=== PATIENT | female | born 1975 | race Caucasian/White ===

== ENCOUNTER 2020-05-16 21:31 | Emergency (ER) | payer OTHER, SELFPAY ==
[2020-05-16] VITALS (10 sets, daily range): BP systolic 111–152; BP diastolic 82–93; PULSE 78–92; RESP 12–20; O2SAT 94–100
--- NOTE | ~2020-05-16 | XR_ITS ---
EXAMINATION: XR chest 1V portable EXAM DATE: 05/16/2020 22:01 INDICATION: Generalized chest pain and shortness of breath. Right-sided jaw pain. TECHNIQUE: Portable AP frontal chest x-ray was obtained. There are no prior studies for comparison. FINDINGS: The lungs are clear. There are no pleural effusions. The cardiomediastinal silhouette is within normal limits. There is no pneumothorax suspected. The bones and soft tissues are unremarkab le. IMPRESSION: No acute cardiopulmonary findings. Reviewed, dictated and finalized at location A.
--- NOTE | 2020-05-16 21:42 | ECG_ITS ---
Measurements Intervals [place] Rate: 94 P: 54 CO: 139 QRS: 33 QRSD: 97 T: 48 QT: 355 QTc: 444 Interpretive Statements SINUS RHYTHM BORDERLINE ST ABNORMALITY- LATERAL LEADS BORDERLINE ECG Electronically Signed On 05-17-2020 6:41:47 CDT by Alek Granados D.O.
[2020-05-16 21:55] LABS: Basophils Percent Auto 0.4 % (0.2-1.2); Eosinophils Absolute Auto 0.2 K/mm3 (0-0.3); Eosinophils Percent Auto 1.9 % (0-4.4); Hematocrit 39.9 % (37.0-47.0); Hemoglobin 13.8 g/dL (12.0-15.0); Immature Granulocyte Absolute 0.02 K/mm3 (0.00-0.031); Immature Granulocyte Percent A 0.3 % (0-0.5); Lymphocytes Absolute Auto 2.37 K/mm3 (0.9-3.2); Lymphocytes Percent Auto 30.2 % (18.3-44.2); Mean Corpuscular HGB Conc 34.6 g/dl (32-36); Mean Corpuscular Volume 95.5 fl (80-100); Mean Platelet Volume 9.4 fl (7.4-10.4); Monocytes Absolute Auto 0.6 K/mm3 (0.1-0.6); Neutrophils Absolute Auto 4.7 K/mm3 (1.3-6.7); Neutrophils Percent Auto 59.2 % (45.5-73.1); Platelet Count Result 249 k/mm3 (150-375); Red Blood Count 4.18 M/mm3 (4.2-5.4); Red Cell Distribution Width 11.6 % (11.5-14.5); White Blood Count 7.9 K/mm3 (4.5-10.0)
[2020-05-16 22:04] LABS: INR 1.1; Prothrombin Time 13.5 Seconds (11.1-14.7)
[2020-05-16 22:07] LABS: Anion Gap 10 mmol/L (8-16); Blood Urea Nitrogen 7 mg/dL (7-17); Calcium 9.8 mg/dL (8.4-10.2); Carbon Dioxide 29 mmol/L (22-30); Chloride 104 mmol/L (98-107); Estimated Glomerular Filt Rate > 60; Glucose 110 mg/dL (65-105); Potassium 3.5 mmol/L (3.4-5.0); Sodium 143 mmol/L (137-145)
[2020-05-16 22:08] LABS: Ethanol < 10 mg/dL (<10)
[2020-05-16 22:11] LABS: D Dimer 0.27 ug/mL (<0.48)
[2020-05-16 22:19] LABS: Troponin I < 0.012 ng/mL (0.000-0.034)
--- NOTE | 2020-05-16 22:23 | ED.CHESTPAIN ---
HPI - Chest Pain General Chief Complaint: Chest Pain Stated Complaint: really bad chest pain Time Seen by Provider: 05/16/20 21:35 Source: patient and family Mode of arrival: ambulatory Limitations: no limitations History of Present Illness HPI narrative: 45-year-old with no major medical problems here with complaints of jaw tightness, chest tightness, arm stiffness started few hours ago. Patient states that she went to a [place] and on her way back home started to have the symptoms. She also feels bloated. She denies any nausea or vomiting. MD complaint: chest heaviness Onset (ago): hour(s) (1) Timing of current episode: constant Pain location: substernal and parasternal Pain radiation: none Severity: moderate Quality: tightness Relieving factors: nothing Risk Factors Coronary artery disease risk factors: none Thoracic aortic dissection risk factors: none Related Data Allergies Allergy/AdvReac Type Severity Reaction Status Date / Time No Known Allergies Allergy Verified 05/16/20 21:40 Review of Systems Review of Systems: All systems reviewed & are unremarkable except as noted in HPI and below Constitutional: Constitutional: Reports no additional constitutional complaints Eyes: Eyes: Reports no additional eye complaints ENT: Reports system reviewed and no additional complaints, except as documented Cardiovascular: Cardiovascular: Reports no additional cardiovascular complaints Respiratory: Respiratory: Reports no additional respiratory complaints Gastrointestinal: Gastrointestinal: Reports as per HPI Musculoskeletal: Musculoskeletal: Reports no additional musculoskeletal complaints Integumentary/Breasts: Skin/Breast: Reports system reviewed and no additional complaints, except as docu Exam Narrative: Exam Narrative: GENERAL: Well-appearing, well-nourished, and in no acute distress.,very anxious HEAD: Normocephalic, atraumatic. EYES: PERRLA and EOMI. ENT: Nares clear, no rhinorrhea or epistaxis. Mucous membranes moist. NECK: Supple. CHEST: Clear to auscultation. No respiratory distress. HEART: Regular rate and rhythm. No murmur heard. Normal peripheral pulses. ABDOMEN: Soft, nontender, nondistended, normal active bowel sounds. EXTREMITIES: Normal range of motion. No edema. SKIN: Warm, dry, no rash. NEURO: No focal deficits. Alert and oriented x3.. Course Vital Signs Vital signs: Vital Signs Pulse Rate 92 05/16/20 21:36 Respiratory Rate 16 05/16/20 21:36 Blood Pressure 152/93 H 05/16/20 21:36 Pulse Oximetry 100 05/16/20 21:36 Pulse Rate 80 05/16/20 21:42 Respiratory Rate 17 05/16/20 21:42 Blood Pressure 125/93 H 05/16/20 21:42 Pulse Oximetry 94 05/16/20 21:42 MDM - Chest Pain MDM Narrative Medical decision making narrative: With a history of chest pain will do a cardiac work-up including d-dimer. Patient appears to be very anxious at this time her blood pressure was elevated, will give her IV 0.5 mg of Ativan to the cardiac work-up. Differential Diagnosis Differential diagnosis: Likely pneumothorax, unstable angina pectoris, atypical chest pain and other (Anxiety) Medical Records Data Attestation: I reviewed the patient's medical records. Lab Data Attestation: I reviewed the patient's lab results. Result diagrams: 05/16/20 21:47 05/16/20 21:47 Labs: Lab Results 05/16/20 05/16/20 05/16/20 Range/Units 21:47 21:47 21:47 WBC 7.9 (4.5-10.0) K/mm3 RBC 4.18 L (4.2-5.4) M/mm3 Hgb 13.8 (12.0-15.0) g/dL Hct 39.9 (37.0-47.0) % MCV 95.5 (80-100) fl MCH 33.0 (26-34) pg MCHC 34.6 (32-36) g/dl RDW 11.6 (11.5-14.5) % Plt Count 249 (150-375) k/mm3 MPV 9.4 (7.4-10.4) fl Immature Gran % (Auto) 0.3 (0-0.5) % Neut % (Auto) 59.2 (45.5-73.1) % Lymph % (Auto) 30.2 (18.3-44.2) % Stanton % (Auto) 8.0 (2.6-8.5) % Eos % (Auto) 1.9 (0-4.4) % Baso % (Auto) 0.4 (0.2-1.2) %
[2020-05-16] MEDS: LORazepam INJ (*CRX) 2 MG/ML VIAL 0.5 MG IV PUSH (22:45)
== END 2020-05-16 23:21 | disposition home or self-care (01) ==
PROVIDERS: Emergency Provider Family Medicine
DX: R07.89 Other chest pain (principal); F41.0 Panic disorder [episodic paroxysmal anxiety]; R94.31 Abnormal electrocardiogram [ECG] [EKG]
CPT/HCPCS: 36415; 71045; 80048; 80307; 84484; 85025; 85380; 85610; 93005; 96374; 99284; J2060

== ENCOUNTER 2020-08-05 13:07 | Outpatient (CLI) | payer BC, SELFPAY ==
--- NOTE | ~2020-08-05 | MR_ITS ---
EXAMINATION: MR cervical spine wo con EXAM DATE: 08/05/2020 13:48 INDICATION: Cervical radiculopathy, spondylosis radiculopathy . Left-sided neck pain, left shoulder p ain. TECHNIQUE: Multi-sequential, multiplanar MR images of the cervical spine were obtained without contra st. Axial T2, axial T2 MERGE sequence. Sagittal T1, T2, T2 fat saturation images also obtained. Th ere is no prior study for comparison. FINDINGS: There is mild to moderate disc disease C5-C7. The vertebral bodies are aligned in the AP d imension. The spinal cord signal intensity and intrinsic morphology is normal. Cervicomedullary junct ion is normal in appearance. There are no suspicious marrow signal abnormalities. Paraspinal soft tis emmett is unremarkable. Level by level evaluation: C2-C3: Disc does not extend beyond the endplate margin. Uncovertebral joint arthropathy: None. Facet joint arthropathy: Mild. Neural foraminal stenosis: No stenosis. Central canal stenosis: No stenosis. C3-C4: Disc does not extend beyond the endplate margin. Uncovertebral joint arthropathy: Mild bilateral. Facet joint arthropathy: Mild bilateral. Neural foraminal stenosis: No stenosis. Central canal stenosis: No stenosis. C4-C5: Disc does not extend beyond the endplate margin. Uncovertebral joint arthropathy: Mild bilateral. Facet joint arthropathy: Mild to moderate right, mild left. Neural foraminal stenosis: Mild bilateral. Central canal stenosis: No stenosis. C5-C6: There is a mild diffuse disc bulge, extending into the left neural foramina. Uncovertebral joint arthropathy: Mild to moderate bilateral. Facet joint arthropathy: Mild. Neural foraminal stenosis: Moderate to severe left, mild to moderate right. Central canal stenosis: Mild. C6-C7: There is a mild diffuse disc bulge. Uncovertebral joint arthropathy: Mild to moderate bilateral. Facet joint arthropathy: None. Neural foraminal stenosis: No stenosis. Central canal stenosis: No stenosis. C7-T1: Disc does not extend beyond the endplate margin. Uncovertebral joint arthropathy: None. Facet joint arthropathy: None. Neural foraminal stenosis: No stenosis. Central canal stenosis: No stenosis. IMPRESSION: 1. C5-6 disc bulge extending into left neural foramina at causing moderate to severe neural foramina l stenosis. 2. Otherwise mild to moderate cervical spondylosis. Reviewed, dictated and finalized at location A. [employer] IMPRESSION: 1. C5-6 disc bulge extending into left neural foramina at causing moderate to severe neural foraminal stenosis. 2. Otherwise mild to moderate cervical spondylosis.
== END 2020-08-05 13:08 ==
DX: M47.813 Spondylosis without myelopathy or radiculopathy, cervicothoracic region (principal); M50.222 Other cervical disc displacement at C5-C6 level; M47.22 Other spondylosis with radiculopathy, cervical region
CPT/HCPCS: 72141

== ENCOUNTER 2021-07-19 13:15 | Emergency (ER) | payer BC, SELFPAY ==
[2021-07-19 13:22] VITALS: BP 131/89; PULSE 83; RESP 16; TEMP 36.9; O2SAT 100
--- NOTE | 2021-07-19 13:26 | ED.URI ---
HPI - URI/Sore Throat General Chief Complaint: Upper Respiratory Infection Stated Complaint: Sore Throat Time Seen by Provider: 07/19/21 13:26 Source: patient and RN notes reviewed History of Present Illness HPI Narrative: Patient is a 46-year-old female who presents the urgent care with complaints of a sore throat without fever, chills, nausea or vomiting. Patient denies of any recent exposures to Covid/influenza/strep. Patient states her sore throat started on Sunday and has worsened. Patient also reports of a mild cough with chest congestion. Patient has been taking Mucinex without much relief. No other acute complaints. No acute distress noted. Patient aware of the plan of care. Some parts of this dictation were generated by voice recognition software and may contain typographical and/or grammatical inaccuracies. Related Data Home Medications Medication Instructions Recorded Confirmed baclofen 10 mg PO DAILY 07/19/21 07/19/21 hydrocodone-acetaminophen 1 tablet PO Q6H PRN 07/19/21 07/19/21 Allergies Allergy/AdvReac Type Severity Reaction Status Date / Time No Known Allergies Allergy Verified 07/19/21 13:36 Review of Systems Review of Systems: CONSTITUTIONAL: Denies fever, chills, or sweats. EYES: Denies visual changes, redness, or discharge. ENT: Denies rhinorrhea, congestion, otalgia. Reports of sore throat and postnasal drainage CARDIOVASCULAR: Denies chest pain, palpitations, or edema. RESPIRATORY: Reports a mild nonproductive cough and chest congestion without dyspnea GASTROINTESTINAL: Denies abdominal pain, nausea, vomiting, or diarrhea. GENITOURINARY: Denies dysuria or hematuria. SKIN: Denies rash or itching. MUSCULOSKELETAL: Denies back pain, joint pain, or myalgia. NEUROLOGIC: Denies headache, numbness, or weakness. All other systems reviewed are negative, except as documented in HPI. PMFSH Comments At the time of my signature, I reviewed and agree with the nursing past medical, surgical, social, and family history. There is no relevant family history pertinent to the patient complaint. Exam Narrative: GENERAL: This is a well-nourished, well-developed patient, in no apparent distress. HEAD: normocephalic, atraumatic. EYES: PERRL. Sclera clear/white. Vision is grossly intact. EARS: External ears normal, auditory canals clear and without drainage, TMs normal without perforation. Hearing grossly intact. NOSE: External nose normal with no obvious nasal discharge, nares without redness, no rhinorrhea. THROAT: Mucous membranes moist, mild erythema noted posterior pharynx with moderate postnasal drainage NECK: Neck supple CARDIOVASCULAR: Regular rate and rhythm without murmurs, gallops, or rubs. RESPIRATORY: Clear to auscultation. Breath sounds equal bilaterally. No wheezes, rales, or rhonchi. SKIN: warm, intact with no suspicious lesions or rash, good texture and turgor. NEURO: awake, alert, and oriented to person, place and time. There were no obvious focal neurologic abnormalities. EXTREMITIES: No clubbing, cyanosis, or edema. Course Vital Signs Vital signs: Vital Signs Temperature 98.5 F 07/19/21 13:22 Pulse Rate 83 07/19/21 13:22 Respiratory Rate 16 07/19/21 13:22 Blood Pressure 131/89 07/19/21 13:22 Pulse Oximetry 100 07/19/21 13:22 Temperature 98.5 F 07/19/21 13:22 Pulse Rate 83 07/19/21 13:22 Respiratory Rate 16 07/19/21 13:22 Blood Pressure 131/89 07/19/21 13:22 Pulse Oximetry 100 07/19/21 13:22 Reviewed MDM - URI/Sore Throat MDM Narrative Medical decision making narrative: Reviewed lab results with the patient. She is aware that strep swab was negative. Educated patient on culture we will call within 72 hours if culture is positive and antibiotics necessary. Advised the patient to complete the steroid regimen and prescribed. Use a daily antihistamine such as Benadryl/Claritin/Zyrtec in conjunction with Flonase nasal spray for postnasal drainage and s
== END 2021-07-19 13:52 | disposition home or self-care (01) ==
PROVIDERS: Emergency Provider Nurse Practitioner Family
DX: J02.9 Acute pharyngitis, unspecified (principal); Z90.711 Acquired absence of uterus with remaining cervical stump
CPT/HCPCS: 87081; 87880; 99213; G0463